=== PATIENT | female | born 1990 | race Caucasian/White ===

== ENCOUNTER → 2016-12-31 | Outpatient (CLI) | payer OTHER ==
[~2016-12-31] MED LIST: AMITRIPTYLINE 225 MG PO; AMOXICILLIN 25250 MG; BENADRYL 25MG C25 MG PO; CLARITIN10 MG PO; CLEOCIN HCL300 MG PO; ELMIRON 100MG100 M1 PO; IRON TABLETS325 MG PO; IRON90 MG; LABETALOL HYDR200 MG PO; LORTAB 500 MG-71 TAB PO; MACROBID100 M3 PO; MAGNESIUM ELEME30 MG; ORTHO EVRA1 TD2 TD; OXYCODONE CR10 MG PO; PERCOCET 10 MG1 EACH PO; PERCOCET 325 MG1 TA3 PO; PERCOCET 5/3251 EACH PO; PHENAZOPYRIDIN200 MG PO; PHENERGAN 25MG.25 M1 PO; PHENERGAN25 M3 PO; PRE-NATAL1 TAB PO; PYRIDIUM 200MG200 MG PO; TORADOL10 M1 PO; TRAMADOL 50MG T50 MG PO; URIBEL1 CAP PO; ZOFRAN ODT8 MG PO; ZYRTEC10 M3 PO
== END ==
LOC: LAB 18:51
DX: Z34.80 Encounter for supervision of other normal pregnancy, unspecified trimester (principal)

== ENCOUNTER → 2017-02-24 | Outpatient (CLI) | payer OTHER ==
[~2017-02-24] MED LIST changes: +LABETALOL HYDR200 M1 PO; +PRENATAL VITAM1 EAC1 PO
== END ==
LOC: LAB 17:42
DX: R30.0 Dysuria (principal)